=== PATIENT | male | born 1955 | race Caucasian/White ===

== ENCOUNTER 2021-09-19 09:47 | Day surgery (SDC) | payer BC | END 2021-09-19 11:51 | disposition home or self-care (01) | LOC: CSHSDC/OP 09:47 | PROVIDERS: ATTEND Internal Medicine | DX: Z23 Encounter for immunization (principal); U07.1 COVID-19; E11.9 Type 2 diabetes mellitus without complications | CPT/HCPCS: 96365; J3490; M0243; Q0244 ==

== ENCOUNTER 2023-04-19 13:07 | Observation (INO) | payer MEDICARE ==
[2023-04-19 15:15] LABS: ALT (SGPT) 147 U/L (8-55); AST (SGOT) 122 U/L (5-34); Albumin 4.8 g/dL (3.4-4.8); Alcohol Less than 10.0 mg/dL (Less than 10); Alkaline Phosphatase 82 U/L (40-110); Anion Gap 17 mmol/L (10-20); BUN (Urea Nitrogen) 37 mg/dL (8.4-25.7); Bilirubin, Total 0.4 mg/dL (0.2-1.2); CK (CPK) 2367 U/L (30-200); Calc. Creatinine Clearance 0 mL/min (70-130); Calcium 9.8 mg/dL (7.8-10.44); Carbon Dioxide 22 mmol/L (23-31); Chloride 106 mmol/L (98-107); Estimated GFR 34; Globulin 2.3 g/dL (2.4-3.5); Glucose 124 mg/dL (80-115); Potassium 5.5 mmol/L (3.5-5.1); Protein, Total 7.1 g/dL (5.8-8.1); Sodium 139 mmol/L (136-145)
[2023-04-19 15:17] LABS: #Eosinphils 0.2 10x3/uL (0.0-0.5); #Monocytes 0.9 10x3/uL (0.0-1.1); #Neutrophils 8.6 10x3/uL (1.5-8.4); %Basophils 0.2 % (0.0-2.0); %Eosinophils 1.6 % (0.0-6.0); %Lymphocytes 8.7 % (18.0-47.0); %Monocytes 8.5 % (0.0-10.0); %Neutrophils 80.6 % (40.0-75.0); Hemoglobin 13.1 g/dL (13.5-17.5); Mean Corpuscular HGB CONC 33.1 g/dL (32.0-36.0); Mean Corpuscular Hemoglobin 29.8 pg (27.0-33.0); Mean Corpuscular Volume 90.2 fl (81.2-95.1); Mean Platelet Volume 11.4 fl (7.4-10.4); Platelet Count 193 10x3/uL (150-450); RBC Distribution Width 13.1 % (11.5-14.5); Red Blood Cell (RBC) Count 4.39 10x6/uL (4.32-5.72); White Blood Cell (WBC) Count 10.7 10x3/uL (3.5-10.5)
[2023-04-19] MEDS ORDERED: Acetaminophen 325 MG TAB PO PRN (16:31)
[2023-04-19] MEDS ORDERED: Ondansetron ODT 4 MG TAB PO PRN (16:31)
[2023-04-19] MEDS ORDERED: Dextrose 5% in Water 1,000 ML IV PRN (16:33)
[2023-04-19] MEDS ORDERED: Dextrose 50% Abboject 50 ML SYRINGE SLOW IVP PRN (16:33)
[2023-04-19] MEDS ORDERED: Glucagon 1 MG/ML KIT IM PRN (16:33)
[2023-04-19] MEDS ORDERED: HumaLOG 300 UNITS/3 ML VIAL SC PRN (16:33)
[2023-04-19] MEDS ORDERED: Sodium Chloride 0.9% 1,000 ML IV SCH ×2 (16:45)
[2023-04-19] MEDS: Sodium Chloride 0.9% 1,000 ML IV SCH ×2 (17:43→23:15)
[2023-04-19 17:47] VITALS: BMI 31.2
[2023-04-19] MEDS: Atorvastatin Calcium 40 MG TAB PO SCH (22:59)
[2023-04-19] MEDS: Amitriptyline HCl 25 MG TAB PO SCH (23:00)
[2023-04-19] MEDS: Heparin 5,000 UNITS/ML VIAL SC SCH (23:00)
[2023-04-20 04:53] LABS: #Eosinphils 0.2 10x3/uL (0.0-0.5); #Monocytes 0.5 10x3/uL (0.0-1.1); #Neutrophils 4.2 10x3/uL (1.5-8.4); %Basophils 0.3 % (0.0-2.0); %Eosinophils 3.9 % (0.0-6.0); %Lymphocytes 16.4 % (18.0-47.0); %Monocytes 8.3 % (0.0-10.0); %Neutrophils 70.9 % (40.0-75.0); Mean Corpuscular HGB CONC 33.2 g/dL (32.0-36.0); Mean Corpuscular Hemoglobin 29.9 pg (27.0-33.0); Mean Platelet Volume 11.2 fl (7.4-10.4); Platelet Count 164 10x3/uL (150-450); RBC Distribution Width 13.2 % (11.5-14.5); Red Blood Cell (RBC) Count 4.01 10x6/uL (4.32-5.72); White Blood Cell (WBC) Count 5.9 10x3/uL (3.5-10.5)
[2023-04-20 05:05] LABS: Anion Gap 13 mmol/L (10-20); BUN (Urea Nitrogen) 27 mg/dL (8.4-25.7); CK (CPK) 1577 U/L (30-200); Calc. Creatinine Clearance 75 mL/min (70-130); Calcium 8.4 mg/dL (7.8-10.44); Carbon Dioxide 19 mmol/L (23-31); Chloride 110 mmol/L (98-107); Estimated GFR 53; Glucose 122 mg/dL (80-115); Potassium 4.2 mmol/L (3.5-5.1); Sodium 138 mmol/L (136-145)
[2023-04-20] MEDS: Sodium Chloride 0.9% 1,000 ML IV SCH ×3 (06:21→19:15)
[2023-04-20] MEDS: Lantus 1000 UNITS/10 ML VIAL SC SCH (09:02)
[2023-04-20] MEDS: Heparin 5,000 UNITS/ML VIAL SC SCH ×3 (09:04→21:46)
[2023-04-20] MEDS: Aspirin 81 mg Enteric Coated Tablet PO SCH (09:04)
[2023-04-20] MEDS: Amitriptyline HCl 25 MG TAB PO SCH (21:46)
[2023-04-20] MEDS: Atorvastatin Calcium 40 MG TAB PO SCH (21:46)
[2023-04-21] MEDS: Sodium Chloride 0.9% 1,000 ML IV SCH (03:35)
[2023-04-21 05:54] LABS: Anion Gap 13 mmol/L (10-20); BUN (Urea Nitrogen) 19 mg/dL (8.4-25.7); CK (CPK) 1237 U/L (30-200); Calc. Creatinine Clearance 87 mL/min (70-130); Calcium 8.4 mg/dL (7.8-10.44); Carbon Dioxide 21 mmol/L (23-31); Chloride 110 mmol/L (98-107); Estimated GFR 64; Glucose 122 mg/dL (80-115); Potassium 4.6 mmol/L (3.5-5.1); Sodium 139 mmol/L (136-145)
[2023-04-21 07:57] VITALS: BP 155/71; TEMP 97.8
[2023-04-21] MEDS: Heparin 5,000 UNITS/ML VIAL SC SCH (08:36)
[2023-04-21] MEDS: Aspirin 81 mg Enteric Coated Tablet PO SCH (08:36)
[2023-04-21] MEDS: Lantus 1000 UNITS/10 ML VIAL SC SCH (08:37)
== END 2023-04-21 11:20 | disposition home or self-care (01) ==
LOC: SUATTDRO 13:07 → CSHERS 13:07 → CSHTELE 15:59
PROVIDERS: ADMIT Family Medicine; ATTEND Internal Medicine
DX: R55 Syncope and collapse (principal); E11.9 Type 2 diabetes mellitus without complications; I10 Essential (primary) hypertension; E86.0 Dehydration; M62.82 Rhabdomyolysis; N17.9 Acute kidney failure, unspecified; I65.29 Occlusion and stenosis of unspecified carotid artery; Z79.82 Long term (current) use of aspirin; Z79.899 Other long term (current) drug therapy
CPT/HCPCS: 70450; 71045; 80048 ×2; 80053; 80307; 82550 ×3; 82962 ×2; 84484; 85025 ×2; 93005; 93306; 93880; 94760 ×2; 96372 ×2; 99285; G0378 ×3; 36415; 36416; J1644; J1815; J7050